=== PATIENT | female | born 1980 | race Caucasian/White ===

== ENCOUNTER → 2021-03-08 | Outpatient (CLI) | payer MEDICAID | LOC: RAD 14:24 | DX: K57.30 Diverticulosis of large intestine without perforation or abscess without bleeding (principal); L03.311 Cellulitis of abdominal wall; T88.8XXD Other specified complications of surgical and medical care, not elsewhere classified, subsequent encounter; Z90.49 Acquired absence of other specified parts of digestive tract; Z90.81 Acquired absence of spleen | CPT/HCPCS: Q9967 ==